=== PATIENT | male | born 2000 | race Two or more races ===

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

== ENCOUNTER 2022-05-14 20:26 | Emergency (ER) | payer MEDICAID ==
[2022-05-14] MEDS ORDERED: Ibuprofen 600 MG Tab PO ONE (21:23)
[2022-05-14] MEDS ORDERED: Amoxicillin 500 MG Cap PO STA (21:23)
[2022-05-14 21:33] VITALS: BP 133/84; PULSE 78
== END 2022-05-14 21:33 | disposition home or self-care (01) ==
LOC: MW.ED 20:26
DX: H66.92 Otitis media, unspecified, left ear (principal)
CPT/HCPCS: 99282; A9270

== ENCOUNTER 2024-04-19 10:13 | Emergency (ER) | payer BC, MEDICAID ==
[2024-04-19 12:49] LABS: BASOPHILS ABSOLUTE AUTO 0.05 K/uL (0.00-0.20); BASOPHILS PERCENT AUTO 0.4 % (0.0-1.0); EOSINOPHILS ABSOLUTE AUTO 0.01 K/uL (0.00-0.45); EOSINOPHILS PERCENT AUTO 0.1 % (0.0-6.0); HEMATOCRIT 43.2 % (42.0-52.0); HEMOGLOBIN 15.2 g/dL (14.0-18.0); IMMATURE GRAN ABSOLUTE AUTO 0.05 K/uL (0.00-0.05); IMMATURE GRAN PERCENT AUTO 0.4 % (0.0-0.4); LYMPHOCYTES ABSOLUTE AUTO 1.25 K/uL (1.00-4.80); LYMPHOCYTES PERCENT AUTO 9.8 % (24.0-44.0); MEAN CORPUSCULAR HGB CONC 35.2 g/dL (32.0-36.0); MEAN CORPUSCULAR VOLUME 85.2 fL (83.0-99.0); MEAN PLATELET VOLUME 9.5 fL (9.4-12.4); MONOCYTES ABSOLUTE AUTO 0.37 K/uL (0.00-0.80); MONOCYTES PERCENT AUTO 2.9 % (0.0-8.0); NEUTROPHILS ABSOLUTE AUTO 11.03 K/uL (1.80-7.70); NEUTROPHILS PERCENT AUTO 86.4 % (41.0-71.0); PLATELET COUNT,PLT 343 K/uL (150-400); RED BLOOD CELL COUNT 5.07 M/uL (4.52-5.90); WHITE BLOOD CELL COUNT,WBC 12.76 K/uL (3.9-11.3)
[2024-04-19 13:45] LABS: A/G RATIO 1.3 (0.9-1.6); ALANINE AMINOTRANSFERASE,ALT 30 IU/L (14-63); ALBUMIN 4.8 g/dL (3.4-5.0); ALKALINE PHOSPHATASE 65 U/L (46-116); ASPARTATE AMNIOTRANSFERASE,AST 16 IU/L (15-37); BILIRUBIN TOTAL 0.7 mg/dL (0.2-1.0); BLOOD UREA NITROGEN,BUN 9 mg/dL (7.0-18.0); CALCIUM 9.9 mg/dL (8.5-10.1); CARBON DIOXIDE,CO2 27.4 mmol/L (21.0-32.0); CHLORIDE,CL 105 mmol/L (98-107); EST CRCL DRUG DOSING (CG) 123.41 mL/min; GLUCOSE RANDOM 114 mg/dL (74-106); PROTEIN TOTAL,TP 8.6 g/dL (6.4-8.2); SODIUM,NA 141 mmol/L (136-148); TSH ULTRASENSITIVE 0.69 uIU/mL (0.36-3.74)
[2024-04-19 13:46] LABS: ESTIMATED GFR 109 mL/min (>60)
[2024-04-19 14:05] VITALS: BP 141/76; PULSE 71
== END 2024-04-19 14:06 | disposition home or self-care (01) ==
LOC: MW.ED 10:13
DX: R00.2 Palpitations (principal); Z86.16 Personal history of COVID-19; Z75.8 Other problems related to medical facilities and other health care
CPT/HCPCS: 36415; 71045; 71045-26; 80053; 84443; 84484; 85025; 87428-QW; 93005; 99285